=== PATIENT | female | born 1990 | race Two or more races ===

== ENCOUNTER 2022-11-18 13:29 | Inpatient (IN) | payer OTHER ==
[~2022-11-18] VITALS: Ht 160 cm; Wt 77.1 kg
[2022-12-03] MEDS ORDERED: PRENATAL TABLE1 EAC1 PO (10:15)
== END 2022-12-05 14:04 | disposition home or self-care (01) | DRG 807 ==
LOC: LDR 12-03 01:33 → OB/GYN 12-03 14:09 → LDR 12-07 14:30
PROVIDERS: ADMIT Obstetrics & Gynecology Maternal & Fetal Medicine; ATTEND Obstetrics & Gynecology Maternal & Fetal Medicine
PROC: 10D07Z6 Extraction of Products of Conception, Vacuum, Via Natural or Artificial Opening (ICD-10-PCS; principal; 2022-12-03)
PROC: 0KQM0ZZ Repair Perineum Muscle, Open Approach (ICD-10-PCS; 2022-12-03)
PROC: 4A1HXCZ Monitoring of Products of Conception, Cardiac Rate, External Approach (ICD-10-PCS; 2022-12-03)
DX: O70.1 Second degree perineal laceration during delivery (principal); O66.5 Attempted application of vacuum extractor and forceps; Z37.0 Single live birth; Z3A.39 39 weeks gestation of pregnancy; Z20.822 Contact with and (suspected) exposure to COVID-19

== ENCOUNTER 2022-11-24 16:05 | Outpatient (CLI) | payer OTHER | END 2022-11-24 17:17 | disposition home or self-care (01) | LOC: NST 16:05 | PROVIDERS: ATTEND Obstetrics & Gynecology | DX: Z34.83 Encounter for supervision of other normal pregnancy, third trimester (principal) ==